=== PATIENT | female | born 1995 | race Caucasian/White ===

== ENCOUNTER 2020-12-16 23:28 | Emergency (ER) | payer BC ==
--- NOTE | 2020-12-17 01:21 | EDM.PDOC ---
ED HPI GENERAL MEDICAL PROBLEM - General Chief Complaint: Abdominal Pain Stated Complaint: LOWER ABD PAIN Time Seen by Provider: 12/17/20 00:05 Source of Information: Reports: Patient, Family History Limitations: Reports: No Limitations - History of Present Illness INITIAL COMMENTS - FREE TEXT/NARRATIVE: 25-year-old female who gave to her child 5 months ago has been doing well but over the past 8 to 10 hours just has not felt quite right, and has now developed some mild abdominal pain in the lower abdomen for the last 3 hours. No fevers or chills, no nausea or vomiting, no diarrhea. She is not . Onset: Gradual Duration: Hour(s): (Pain for 3 hours) Location: Reports: Abdomen (Right lower quadrant) Associated Symptoms: Reports: No Other Symptoms Right Lower Abdomen Pain Score (Numeric/FACES): 7 - Related Data Allergies Allergy/AdvReac Type Severity Reaction Status Date / Time sulfamethoxazole Allergy Rash Verified 12/16/20 23:56 [From Bactrim] trimethoprim [From Bactrim] Allergy Rash Verified 12/16/20 23:56 Home Meds: Home Meds Multivitamin with Folic Acid [Multiple Vitamin Tablet] 1 tab PO DAILY 12/16/20 [History] NK [No Known Home Meds] 12/16/20 [History] Past Medical History Respiratory History: Reports: Asthma VP CARDIOVASCULAR History: Reports: - Past Surgical History Female Surgical History: Reports: Section Social & Family History - Tobacco Use Tobacco Use Status *Q: Never Tobacco User - Caffeine Use Caffeine Use: Reports: Coffee - Recreational Drug Use Recreational Drug Use: No ED ROS GENERAL - Review of Systems Review Of Systems: See Below Constitutional: Denies: Fever, Chills Respiratory: Denies: Shortness of Breath Cardiovascular: Denies: Chest Pain GI/Abdominal: Reports: Abdominal Pain. Denies: Nausea, Vomiting Skin: Reports: No Symptoms Neurological: Reports: No Symptoms ED EXAM, GI/ABD - Physical Exam Exam: See Below Exam Limited By: No Limitations General Appearance: Alert, No Apparent Distress Eyes: Bilateral: Normal Appearance Head: Atraumatic Respiratory/Chest: No Respiratory Distress, Lungs Clear Cardiovascular: Regular Rate, Rhythm GI/Abdominal Exam: Normal Bowel Sounds, Soft, Tender (Patient does have some tenderness to palpation in the right lower quadrant but no significant guarding, borderline peritoneal irritation) Neurological: Alert, Oriented Psychiatric: Normal Affect, Normal Mood Course - Vital Signs Last Recorded V/S: Last Vital Signs Temp 97.9 F 12/17/20 00:00 Pulse 89 12/17/20 01:04 Resp 16 12/17/20 00:00 BP 114/67 12/17/20 01:04 Pulse Ox 96 12/17/20 00:00 - Re-Assessments/Exams Free Text/Narrative Re-Assessment/Exam: 12/17/20 01:49 Impression: 1. Borderline enlarged distal appendix without appreciable wall thickening or surrounding edema. Very mild/early presentation of acute appendicitis cannot be excluded. Clinical correlation and close monitoring are recommended. 2. Otherwise no acute abnormality demonstrated in the abdomen and pelvis. No nephrolithiasis or urinary obstruction. 12/17/20 01:51 Above findings were discussed with the patient. Very minimal findings, the family decided to go home for the next several hours and if she worsens she will return. Departure - Departure Time of Disposition: 01:28 Disposition: Home, Self-Care 01 Clinical Impression: Abdominal pain Qualifiers: Abdominal location: right lower quadrant Qualified Code(s): R10.31 - Right lower quadrant pain - Discharge Information Instructions: Abdominal Pain, Adult, [id number] Referrals: PCP,None [Primary Care Provider] - Forms: ED Department Discharge Care Plan Goals: Some ibuprofen may be helpful tonight, recheck tomorrow if worse or you develop other concerns. Otherwise advance diet and activity as tolerated and recheck when you are home if not improving satisfactorily. Sepsis Event Note (ED) - Evaluation Sepsis Screening Result: No Definite Risk - Focused Exam Vital Signs: Vital Signs Temp Pulse Resp BP Pulse Ox 12/17/20 01:04 89 114/67 12/17/20 00:00 97.9 F 94 16 141/82 H 96
--- NOTE | 2020-12-17 01:36 | CRLCT ---
For Patients: As a result of the Century Cures Act, medical imaging exams and procedure reports are released immediately into your electronic medical record. You may view this report before your referring provider. If you have questions, please contact your health care provider. Indication: Lower abdominal pain Technique: Nonenhanced axial CT imaging through the abdomen and pelvis. Sagittal and coronal reconstructions are provided. Comparison: None Findings: There is unremarkable noncontrast appearance of the liver, gallbladder, spleen, pancreas, and adrenal glands. There is no abdominal lymphadenopathy. There is normal caliber of the abdominal aorta. There is normal renal parenchymal attenuation without hydronephrosis. No stones are seen in the renal collecting systems, ureters, or urinary bladder. Small calcific densities in the pelvis on the are consistent with phleboliths. The distal appendix is borderline enlarged, measuring approximately 10 mm in diameter, compared to 7 mm at the base. No appendiceal wall thickening or surrounding edema appreciated. The stomach and duodenum are unremarkable. There are no abnormally dilated small bowel loops. There is no colonic wall thickening. No inflammatory changes are demonstrated in the mesentery. The osseous structures are unremarkable. The included lung bases are clear. Impression: 1. Borderline enlarged distal appendix without appreciable wall thickening or surrounding edema. Very mild/early presentation of acute appendicitis cannot be excluded. Clinical correlation and close monitoring are recommended. 2. Otherwise no acute abnormality demonstrated in the abdomen and pelvis. No nephrolithiasis or urinary obstruction. Please note that all CT scans at this facility use dose modulation, iterative reconstruction, and/or weight-based dosing when appropriate to reduce radiation dose to as low as reasonably achievable. Dictated by Orlando Amador MD @ 12/17/2020 1:34:[address] Orlando Amador @ Dec 17 2020 1:34AM
== END 2020-12-17 01:29 | disposition home or self-care (01) ==
LOC: JP.ED 23:28
DX: R10.31 Right lower quadrant pain (principal); Z88.2 Allergy status to sulfonamides; Z88.8 Allergy status to other drugs, medicaments and biological substances
CPT/HCPCS: 74176; 99282; 99284-25

== ENCOUNTER 2020-12-18 13:04 | Emergency (ER) | payer BC ==
--- NOTE | 2020-12-18 14:42 | EDM.PDOC ---
ED HPI GENERAL MEDICAL PROBLEM - General Chief Complaint: Abdominal Pain Stated Complaint: FOLLOW UP FROM 12/16/20 Time Seen by Provider: 12/18/20 14:10 Source of Information: Reports: Patient, Family History Limitations: Reports: No Limitations - History of Present Illness INITIAL COMMENTS - FREE TEXT/NARRATIVE: 25-year-old female who was seen 3 nights ago with abdominal pain, had an equivocal presentation and CT scan for appendicitis. They are now planning for leaving for [place], she still has a small amount of pain in her right lower quadrant but markedly improved, no fevers or chills, no problems with her diet, but mom wants her checked to make sure it safe to go to [place]. The patient herself claims she is "fine" and looks much better than she did 3 nights ago. Onset: Gradual Duration: Day(s): (Symptoms for 3 days) Location: Reports: Abdomen (Lower abdomen) Associated Symptoms: Reports: No Other Symptoms - Related Data Allergies Allergy/AdvReac Type Severity Reaction Status Date / Time sulfamethoxazole Allergy Rash Verified 12/18/20 14:08 [From Bactrim] trimethoprim [From Bactrim] Allergy Rash Verified 12/18/20 14:08 Home Meds: Home Meds Multivitamin with Folic Acid [Multiple Vitamin Tablet] 1 tab PO DAILY 12/16/20 [History] Past Medical History Respiratory History: Reports: Asthma Genitourinary History: Reports: None ROOFER History: Reports: - Past Surgical History Head Surgeries/Procedures: Reports: None Respiratory Surgical History: Reports: None Female Surgical History: Reports: Section Social & Family History - Tobacco Use Tobacco Use Status *Q: Never Tobacco User Second Hand Smoke Exposure: No - Caffeine Use Caffeine Use: Reports: Coffee ED ROS GENERAL - Review of Systems Review Of Systems: See Below Constitutional: Denies: Fever, Chills, Malaise HEENT: Reports: No Symptoms Respiratory: Reports: No Symptoms GI/Abdominal: Reports: Abdominal Pain. Denies: Constipation, Diarrhea, Nausea, Vomiting : Reports: No Symptoms Skin: Reports: No Symptoms ED EXAM, GI/ABD - Physical Exam Exam: See Below Exam Limited By: No Limitations General Appearance: Alert, No Apparent Distress Eyes: Bilateral: Normal Appearance Respiratory/Chest: No Respiratory Distress, Lungs Clear Cardiovascular: Regular Rate, Rhythm GI/Abdominal Exam: Normal Bowel Sounds, Soft, Tender (Minimal tenderness to palpation just above the pubis area, both left and the right lower abdomen with a slight increased pain in the right side. No significant rebound tenderness and no guarding) Neurological: Alert, Oriented Psychiatric: Normal Affect, Normal Mood Skin Exam: Warm, Dry Course - Vital Signs Last Recorded V/S: Last Vital Signs Temp 97.7 F 12/18/20 14:09 Pulse 78 12/18/20 14:09 Resp 16 12/18/20 14:09 BP 131/109 H 12/18/20 14:09 Pulse Ox 97 12/18/20 14:09 - Re-Assessments/Exams Free Text/Narrative Re-Assessment/Exam: 12/18/20 14:[address] report again with the parent, made a copy for them for travel and also an actual physical disc of the CT. She is improving too much I think to worry about rescanning or reevaluation at this time, but if she redevelops pain in route they can check anywhere. Departure - Departure Time of Disposition: 14:46 Disposition: Home, Self-Care 01 Clinical Impression: Abdominal pain Qualifiers: Abdominal location: right lower quadrant Qualified Code(s): R10.31 - Right lower quadrant pain - Discharge Information Instructions: Abdominal Pain, Adult Referrals: PCP,None [Primary Care Provider] - Forms: ED Department Discharge Care Plan Goals: Advance diet as tolerated, stay hydrated, and continued Tylenol or ibuprofen for any discomfort if needed. Recheck at any hospital if symptoms are worsening especially with fever or marked increase in pain. Sepsis Event Note (ED) - Evaluation Sepsis Screening Result: No Definite Risk - Focused Exam Vital Signs: Vital Signs Temp Pulse Resp BP Pulse Ox 12/18/20 14:09 97.7 F 78 16 131/109 H 97 12/18/20 14:03 97.7 F 78 16 131/109 H 97
== END 2020-12-18 14:46 | disposition home or self-care (01) ==
LOC: JP.ED 13:04
DX: R10.31 Right lower quadrant pain (principal); R10.32 Left lower quadrant pain; J45.909 Unspecified asthma, uncomplicated; Z88.2 Allergy status to sulfonamides
CPT/HCPCS: 99283